=== PATIENT | female | born 1955 | race Caucasian/White ===

== ENCOUNTER 2017-05-27 08:01 | Outpatient (CLI) | payer OTHER | END 2017-05-27 08:16 | disposition home or self-care (01) | LOC: LAB 08:01 | DX: R74.0 Nonspecific elevation of levels of transaminase and lactic acid dehydrogenase [LDH] (principal); E11.9 Type 2 diabetes mellitus without complications; I10 Essential (primary) hypertension; E78.2 Mixed hyperlipidemia; D64.89 Other specified anemias; R82.99 Other abnormal findings in urine; M81.0 Age-related osteoporosis without current pathological fracture; E55.9 Vitamin D deficiency, unspecified; E79.0 Hyperuricemia without signs of inflammatory arthritis and tophaceous disease; M1A.09X1 Idiopathic chronic gout, multiple sites, with tophus (tophi) ==

== ENCOUNTER → 2017-10-21 07:19 | Outpatient (CLI) | payer OTHER | END | disposition home or self-care (01) | LOC: LAB 07:19 | DX: E55.9 Vitamin D deficiency, unspecified (principal); R10.84 Generalized abdominal pain; D64.89 Other specified anemias; E78.4 Other hyperlipidemia; R80.8 Other proteinuria; E11.9 Type 2 diabetes mellitus without complications; E03.8 Other specified hypothyroidism; N39.0 Urinary tract infection, site not specified; Z12.11 Encounter for screening for malignant neoplasm of colon ==

== ENCOUNTER 2017-10-25 08:46 | Outpatient (CLI) | payer OTHER | END 2017-10-25 08:50 | disposition home or self-care (01) | LOC: LAB 08:46 | DX: D64.89 Other specified anemias (principal); R10.84 Generalized abdominal pain; E78.4 Other hyperlipidemia; R80.8 Other proteinuria; E11.9 Type 2 diabetes mellitus without complications; E03.8 Other specified hypothyroidism; Z12.11 Encounter for screening for malignant neoplasm of colon; N39.0 Urinary tract infection, site not specified; E55.9 Vitamin D deficiency, unspecified ==

== ENCOUNTER 2018-01-09 13:34 | Outpatient (CLI) | payer OTHER | END 2018-01-09 13:49 | disposition home or self-care (01) | LOC: MAMO-SONO 13:34 | DX: Z12.31 Encounter for screening mammogram for malignant neoplasm of breast (principal); N64.89 Other specified disorders of breast ==

== ENCOUNTER → 2018-02-03 | Outpatient (CLI) | payer OTHER | END | disposition home or self-care (01) | LOC: SONOGRAMA 09:27 | DX: N63.20 Unspecified lump in the left breast, unspecified quadrant (principal) ==

== ENCOUNTER 2018-09-07 07:46 | Outpatient (CLI) | payer OTHER | END 2018-09-07 08:02 | disposition home or self-care (01) | LOC: LAB 07:46 | DX: E03.8 Other specified hypothyroidism (principal); D50.8 Other iron deficiency anemias; I10 Essential (primary) hypertension; M85.80 Other specified disorders of bone density and structure, unspecified site; N39.0 Urinary tract infection, site not specified ==

== ENCOUNTER 2022-01-07 10:02 | Outpatient (CLI) | payer OTHER | END 2022-01-07 10:03 | disposition home or self-care (01) | LOC: NUCLEAR 10:02 | PROVIDERS: ATTEND Internal Medicine Rheumatology | DX: M81.0 Age-related osteoporosis without current pathological fracture (principal) ==

== ENCOUNTER 2022-03-18 15:32 | Emergency (ER) | payer OTHER ==
[~2022-03-18] VITALS: Ht 160 cm; Wt 59.0 kg
[2022-03-18] MEDS ORDERED: CELEBREX200MG PO (19:48)
== END 2022-03-18 20:12 | disposition home or self-care (01) ==
LOC: ER 15:32
DX: S29.9XXA Unspecified injury of thorax, initial encounter (principal); V49.9XXA Car occupant (driver) (passenger) injured in unspecified traffic accident, initial encounter; Y93.9 Activity, unspecified; Y92.9 Unspecified place or not applicable

== ENCOUNTER 2024-03-09 09:19 | Outpatient (CLI) | payer OTHER ==
[~2024-03-09 09:19] MED LIST: CELEBREX200MG PO
== END 2024-03-09 09:21 | disposition home or self-care (01) ==
LOC: NUCLEAR 09:19
PROVIDERS: ATTEND Internal Medicine Rheumatology
DX: M81.0 Age-related osteoporosis without current pathological fracture (principal)

== ENCOUNTER 2024-10-19 07:07 | Outpatient (CLI) | payer OTHER | END 2024-10-19 07:09 | disposition home or self-care (01) | LOC: SONOGRAMA 07:07 | DX: G56.03 Carpal tunnel syndrome, bilateral upper limbs (principal); M79.642 Pain in left hand; M79.641 Pain in right hand; M19.90 Unspecified osteoarthritis, unspecified site ==

== ENCOUNTER 2024-10-29 10:49 | Outpatient (CLI) | payer OTHER | END 2024-10-29 10:55 | disposition home or self-care (01) | LOC: RAD 10:49 | DX: M99.01 Segmental and somatic dysfunction of cervical region (principal); M99.02 Segmental and somatic dysfunction of thoracic region; M99.03 Segmental and somatic dysfunction of lumbar region; M99.05 Segmental and somatic dysfunction of pelvic region ==